=== PATIENT | female | born 1980 | race Caucasian/White ===

== ENCOUNTER → 2017-05-17 | Outpatient (CLI) | payer OTHER ==
--- NOTE | 2017-05-20 18:22 | EEG ---
DATE OF SERVICE: 05/17/2017 ELECTROENCEPHALOGRAM NUMBER: [id number] OBJECTIVE: This is a 36-year-old female patient with history of seizure or seizure like episodes. EEG was requested to evaluate the seizure activity. METHODS: Twenty electrodes were applied according to the international 10-20 electrode placement system. EKG monitoring, hyperventilation, intermittent photic stimulation, monopolar and bipolar montages are routinely utilized. The record was obtained on a digital system with video monitoring. FINDINGS: 1. Background: The patient was recorded in the awake and drowsy states. No actual sleep state was recorded. The overall background amplitude is 10-30 microvolts. A posterior dominant rhythm of 8-9 Hz is observed. 2. Abnormalities: No specific epileptiform discharge or electrographic seizure is seen. No focal or diffuse slowing. 3. Activation: Hyperventilation was performed with good efforts and normal response. Intermittent photic stimulation was performed with photic driving. No specific epileptiform discharge or electrographic seizure induced. Photoparoxysmal response noted. IMPRESSION: This EEG is a borderline study for the awake and drowsy states. No actual sleep state was recorded. No focal, lateralizing, specific epileptiform discharge or electrographic seizure is seen. Photoparoxysmal response noted during photic stimulation. LISA RYAN MD DR: GISSELLE/sabino JOB#: [id number] / [id number] GLORIA
== END | disposition home or self-care (01) ==
LOC: RT 08:02
PROVIDERS: ATTEND Psychiatry & Neurology Neurology
DX: G40.909 Epilepsy, unspecified, not intractable, without status epilepticus (principal)
CPT/HCPCS: 95816

== ENCOUNTER 2020-10-28 09:38 | Emergency (ER) | payer OTHER ==
[~2020-10-28] VITALS: Ht 160 cm; Wt 57.3 kg
[2020-10-28 10:39] LABS: BASO % 1 % (0-3); EOS % 1 % (0-3); HEMATOCRIT 40.9 % (36.0-47.0); HEMOGLOBIN 13.9 g/dL (12.0-15.5); LYMPH # 1.5 x10^3/uL (1.0-4.8); LYMPH % 34 % (24-48); MEAN CORPUSCULAR HEMOGLOBIN 32 pg (25-35); MEAN CORPUSCULAR HGB CONC 34 g/dL (31-37); MEAN CORPUSCULAR VOLUME 95 fL (79-100); MONO # 0.4 x10^3/uL (0.0-1.1); MONO % 9 % (0-9); NEUT # 2.5 x10^3/uL (1.8-7.7); NEUT % 56 % (31-73); PLATELET COUNT 306 x10^3/uL (140-400); RED BLOOD COUNT 4.32 x10^6/uL (3.50-5.40); RED CELL DISTRIBUTION WIDTH 12.3 % (11.5-14.5); WHITE BLOOD COUNT 4.5 x10^3/uL (4.0-11.0)
--- NOTE | 2020-10-28 10:42 | RAD ---
XR CHEST 1V History: Reason: chest pain / Spl. Instructions: / History: Comparison: None. Findings: No consolidation or pleural effusion. Normal heart size. No pneumothorax. Impression: 1. No acute cardiopulmonary process. Electronically signed by: Wolfgang Diaz DO (10/28/2020 10:40 AM) [id number]
[2020-10-28 10:44] LABS: CALCIUM 9.2 mg/dL (8.5-10.1); CREATININE 0.9 mg/dL (0.6-1.0); GFR 70.1; POTASSIUM 3.9 mmol/L (3.5-5.1)
[2020-10-28 10:48] LABS: BILIRUBIN,URINE NEGATIVE (NEG); CLARITY,URINE CLEAR; COLOR,URINE YELLOW; NITRITE,URINE NEGATIVE (NEG); PH,URINE 7.5 (<5.0-8.0); PROTEIN,URINE NEGATIVE (NEG-TRACE); UROBILINOGEN,URINE 0.2 mg/dL (0.2 mg/dL)
[2020-10-28 10:49] LABS: ALBUMIN 4.1 g/dL (3.4-5.0); ALBUMIN/GLOBULIN RATIO 1.4 (1.0-1.7); TOTAL BILIRUBIN 0.3 mg/dL (0.2-1.0)
--- NOTE | 2020-10-28 10:50 | ED.ADGEN ---
Past Medical History Past Medical History: Depression Past Surgical History: Other Additional Past Surgical Histo: R ROTATOR CUFF, BREAST AUGMENTATION Smoking Status: Never Smoker Alcohol Use: None Drug Use: None General Adult EDM: Chief Complaint: Palpitations HPI: HPI: Patient is a 40 year old female who presents to the emergency department with complaints of palpitations, and intermittent shortness of breath for the last 3 days. Patient reports that she was seen at [facility] 3 days ago for the same symptoms. She states that this morning she was driving and she began to feel lightheaded. She denies any vision changes, numbness, tingling, or weakness. Patient reports feeling fatigued and having decreased energy for the last 2 months. She denies any chest pain, syncope, diaphoresis, nausea, vomiting, diarrhea, cough, body aches, headache, ear pain, or extremity swelling. She denies any family history of heart disease. She reports that she only drinks 1 cup of coffee daily she denies any other caffeine consumption and use of energy drinks. Patient denies any illicit drug, alcohol, or tobacco use. She currently denies any pain. Review of Systems: Review of Systems: Complete ROS is negative unless otherwise noted in HPI. Allergies: Allergies: Allergies Coded Allergies Type Severity Reaction Last Updated Verified Iodinated Contrast Media Allergy Unknown 10/28/20 Yes Physical Exam: PE: See Above Constitutional: Well developed, well nourished, no acute distress, non-toxic appearance. [] HENT: Normocephalic, atraumatic, bilateral external ears normal, nose normal. [] Eyes: PERRLA, EOMI, conjunctiva normal, no discharge. [] Neck: Normal range of motion, no stridor. [] Cardiovascular:Heart rate regular rhythm, no murmur Lungs & Thorax: Respirations even and unlabored, no retractions, no respiratory distress, lungs CTA Abdomen: soft, no tenderness Skin: Warm, dry, no erythema, no rash. [] Extremities: No cyanosis, ROM intact, no edema. [] Neurologic: Alert and oriented X 3, normal motor, normal sensory, no focal deficits noted. [] Psychologic: Affect normal, judgement normal, mood normal. [] Current Patient Data: Labs: Laboratory Tests Test 10/28/20 09:55 10/28/20 10:00 10/28/20 10:03 White Blood Count 4.5 x10^3/uL (4.0-11.0) Red Blood Count 4.32 x10^6/uL (3.50-5.40) Hemoglobin 13.9 g/dL (12.0-15.5) Hematocrit 40.9 % (36.0-47.0) Mean Corpuscular Volume 95 fL (79-100) Mean Corpuscular Hemoglobin 32 pg (25-35) Mean Corpuscular Hemoglobin Concent 34 g/dL (31-37) Red Cell Distribution Width 12.3 % (11.5-14.5) Platelet Count 306 x10^3/uL (140-400) Neutrophils (%) (Auto) 56 % (31-73) Lymphocytes (%) (Auto) 34 % (24-48) Monocytes (%) (Auto) 9 % (0-9) Eosinophils (%) (Auto) 1 % (0-3) Basophils (%) (Auto) 1 % (0-3) Neutrophils # (Auto) 2.5 x10^3/uL (1.8-7.7) Lymphocytes # (Auto) 1.5 x10^3/uL (1.0-4.8) Monocytes # (Auto) 0.4 x10^3/uL (0.0-1.1) Eosinophils # (Auto) 0.0 x10^3/uL (0.0-0.7) Basophils # (Auto) 0.0 x10^3/uL (0.0-0.2) Sodium Level 145 mmol/L (136-145) Potassium Level 3.9 mmol/L (3.5-5.1) Chloride Level 103 mmol/L (98-107) Carbon Dioxide Level 26 mmol/L (21-32) Anion Gap 16 (6-14) H Blood Urea Nitrogen 14 mg/dL (7-20) Creatinine 0.9 mg/dL (0.6-1.0) Estimated GFR (Cockcroft-Gault) 70.1 BUN/Creatinine Ratio 16 (6-20) Glucose Level 90 mg/dL (70-99) Calcium Level 9.2 mg/dL (8.5-10.1) Magnesium Level 2.0 mg/dL (1.8-2.4) Total Bilirubin 0.3 mg/dL (0.2-1.0) Aspartate Amino Transferase (AST) 22 U/L (15-37) Alanine Aminotransferase (ALT) 30 U/L (14-59) Alkaline Phosphatase 73 U/L (46-116) Creatine Kinase 115 U/L (26-192) Creatine Kinase MB (Mass) 1.0 ng/mL (0.0-3.6) Creatine Kinase MB Relative Index 0.9 % (0-4) Troponin I Quantitative < 0.017 ng/mL (0.000-0.055) Total Protein 7.0 g/dL (6.4-8.2) Albumin 4.1 g/dL (3.4-5.0) Albumin/Globulin Ratio 1.4 (1.0-1.7) Lipase 103 U/L (73-393) Thyroid Stimulating Hormone (TSH) 1.939 uIU/mL (0.358-3.74) Free Thyroxine 0.95 ng/dL (0.76-1.46) Free Triiodothyronine (T3) pg/mL 2.81 pg/mL (2.18-3.98) Urine Collection Type Unknown Urine Color Yellow Urine Clarity Clear Urine pH 7.5 (<5.0-8.0) Urine Specific [place] <=1.005 (1.000-1.030) Urine Protein Negative mg/dL (NEG-TRACE) Urine Glucose (UA) Negative mg/dL (NEG) Urine Ketones (Stick) Negative mg/dL (NEG) Urine Blood Negative (NEG) Urine Nitrite Negative (NEG) Urine Bilirubin Negative (NEG) Urine Urobilinogen Dipstick 0.2 mg/dL (0.2 mg/dL) Urine Leukocyte Esterase Negative (NEG) Urine RBC 0 /HPF (0-2) Urine WBC 0 /HPF (0-4) Urine Squamous Epithelial Cells Occ /LPF Urine Bacteria 0 /HPF (0-FEW) POC Urine HCG, Qualitative Hcg negative (Negative) Laboratory Tests 10/28/20 09:55 Laboratory Tests 10/28/20 09:55 Vital Signs: Vital Signs Date Time Temp Pulse Resp B/P (MAP) Pulse Ox O2 Delivery O2 Flow Rate FiO2 10/28/20 09:50 97.6 88 18 131/61 (84) 100 Room Air 97.6 EKG: EK-sinus rhythm with PVCs, rate 81, incomplete right bundle branch block, no STEMI read by Dr. Tavares [] Heart Score: C/O Chest Pain: Yes HEART Score for Chest Pain: HEART Score for Chest Pain Response (Comments) Value History Slighlty/Non-Suspicious 0 ECG Normal 0 Age < 45 0 Risk Factors No Risk Factors 0 Troponin < Normal Limit 0 Total 0 Risk Factors: Risk Factors: DM, Current or recent (<one month) smoker, HTN, HLP, family history of CAD, obesity. Risk Scores: Score 0 - 3: 2.5% MACE over next 6 weeks - Discharge Home Score 4 - 6: 20.3% MACE over next 6 weeks - Admit for Clinical Observation Score 7 - 10: 72.7% MACE over next 6 weeks - Early Invasive Strategies Radiology/Procedures: Radiology/Procedures: PROCEDURE: CHEST AP ONLY XR CHEST 1V History: Reason: chest pain / Spl. Instructions: / History: Comparison: None. Findings: No consolidation or pleural effusion. Normal heart size. No pneumothorax. Impression: 1. No acute cardiopulmonary process. Electronically signed by: Wolfgang Diaz DO (10/28/2020 10:40 AM) [id number] [] Course & Med Decision Making: Course & Med Decision Making Pertinent Labs and Imaging studies reviewed. (See chart for details) 40 year-old female presents emergency department for evaluation of palpitations for the last 3 days. EKG was unremarkable. CBC was unremarkable, CMP was unremarkable, thyroid studies were within normal limits, cardiac panel was unremarkable. UA was unremarkable Chest x-ray revealed no acute findings. Vital signs in the emergency department were stable. Orthostatic blood pressures were unremarkable. I discussed these results with the patient, while I was at the bedside discussing the results patient stated that she has had headaches in the base of her skull frequently for about the last week. She denied any photosensitivity, vision changes, nasal congestion, runny nose, sinus pressure, numbness, tingling, or weakness. I offered to do a CT of the patient's head, patient declined stating she has had multiple CTs of her head throughout her lifetime. Advised her that I will prescribe a muscle relaxer to take as needed for the headaches. Patient reports that Flexeril causes her to be extremely tired, will prescribe Norflex instead. I encouraged her to follow-up with her primary care doctor and Dr. Ina arauz for further evaluation of palpitations. I encouraged her to return to the ER if her symptoms worsened or fever develop. Patient verbalized an understanding of home care, medications, follow-up, and return to ED instructions and was in agreement with the plan of care. [] Sky Disclaimer: Sky Disclaimer: This electronic medical record was generated, in whole or in part, using a voice recognition dictation system. Departure Departure Impression: Primary Impression: Palpitations Additional Impression: Episodic lightheadedness Disposition: HOME / SELF CARE / HOMELESS Condition: STABLE Referrals: PATRICE ALVAREZ (PCP) KVNG BUCKLEY MD Patient Instructions: Palpitations, [id number], Tension Headache, [id number] Additional Instructions: Fill the prescription and take as directed for headaches as needed. Your labs were unremarkable today, thyroid studies were within normal limits. Please follow up with Dr. Buckley and your primary care doctor in the next 1-2 days. Return to the ER if symptoms worsen or fever develops. Scripts Orphenadrine Citrate (ORPHENADRINE CITRATE) 100 Mg Tablet.er 1 TAB PO BID PRN for HEADACHE for 10 Days, #20 TAB 0 Refills Prov: CLINTON RAMON FIELD SAMPLING TECHNICIAN 10/28/20 Problem Qualifiers CLINTON RAMON FIELD SAMPLING TECHNICIAN Oct 28, 2020 10:50
[2020-10-28 11:08] LABS: BACTERIA,URINE 0 /HPF (0-FEW); RBC,URINE 0 /HPF (0-2); WBC,URINE 0 /HPF (0-4)
[2020-10-28 11:11] LABS: FREE T4 0.95 ng/dL (0.76-1.46); THYROID STIM HORMONE (TSH) 1.939 uIU/mL (0.358-3.74)
--- NOTE | 2020-10-28 11:25 | EKG ---
[facility] [address] [place] [address] Test Date: 2020-10-28 Test Time: 09:50:33 Pat Name: JAVI CARR Department: Room: Gender: F Male Model: : 1980 Requested By: CLINTON RAMON Order Number: [id number] Reading MD: Measurements Intervals [place] Rate: 81 P: 57 SD: 138 QRS: 64 QRSD: 94 T: 47 QT: 402 QTc: 467 Interpretive Statements SINUS RHYTHM VENTRICULAR PREMATURE COMPLEX(ES) INCOMPLETE RIGHT BUNDLE BRANCH BLOCK ABNORMAL ECG RI6.01 No previous ECG available for comparison
[2020-10-28] MEDS ORDERED: ORPH100T PO (11:49)
[2020-10-28 11:55] VITALS: BP 98/52
== END 2020-10-28 12:05 | disposition home or self-care (01) ==
LOC: ER 09:38
DX: R00.2 Palpitations (principal); R42 Dizziness and giddiness; R06.02 Shortness of breath; F32.9 Major depressive disorder, single episode, unspecified; Z91.041 Radiographic dye allergy status
CPT/HCPCS: 36415; 71045; 80053; 81001; 81025; 82553; 83690; 83735; 84439; 84443; 84481; 84484; 85025; 93005; 99285-25